=== PATIENT | male | born 2000 | race Caucasian/White ===

== ENCOUNTER 2018-07-31 21:27 | Emergency (ER) | payer MEDICAID, OTHER, SELFPAY ==
[~2018-07-31] VITALS: Ht 175.3 cm; Wt 72.7 kg
[2018-07-31] MEDS ORDERED: NS 1,000 ML IV ONE ×2 (22:15→23:45)
[2018-07-31] MEDS ORDERED: DICYCLOMINE 10 MG CAP PO ONE (22:30)
[2018-07-31] MEDS ORDERED: METOCLOPRAMIDE INJ 10MG/2ML VIAL (J2765) IV ONE (22:30)
[2018-07-31] MEDS: GASTROGRAFIN SOLUTION 30ML PO SCH ×2 (22:45→23:15)
[2018-07-31 22:58] LABS: BASO % 0.1 % (0.0-1.0); EOS # 0.1 10^3/uL (0.0-0.50); EOS % 0.8 % (0.0-3.0); HEMOGLOBIN 15.5 g/dl (13.5-17.5); LYMPH # 1.3 10^3/uL (1.5-6.5); LYMPH % 8.1 % (24.0-44.0); MEAN CORPUSCULAR HEMOGLOBIN 30.4 pg (27.0-33.0); MEAN CORPUSCULAR HGB CONC 33.7 g/dl (32.0-36.5); MEAN CORPUSCULAR VOLUME 90.2 fl (80.0-96.0); MONO # 0.6 10^3/uL (0.0-0.8); MONO % 4.1 % (0.0-5.0); NEUTROPHILS # 13.6 10^3/uL (1.8-7.7); NEUTROPHILS % 86.6 % (36.0-66.0); PLATELET COUNT, AUTOMATED 243 10^3/uL (150-450); WHITE BLOOD COUNT 15.7 10^3/uL (4.0-10.0)
[2018-07-31 23:25] LABS: ALBUMIN 4.5 GM/DL (3.2-5.2); ALT/SGPT 22 U/L (12-78); BILIRUBIN,DIRECT 0.1 MG/DL (0.0-0.2); BILIRUBIN,TOTAL 0.5 MG/DL (0.2-1.0); BLOOD UREA NITROGEN 9 MG/DL (7-18); CALCIUM LEVEL 9.2 MG/DL (8.5-10.1); CARBON DIOXIDE LEVEL 27 MEQ/L (21-32); CHLORIDE LEVEL 107 MEQ/L (98-107); CREATININE FOR GFR 0.73 MG/DL (0.70-1.30); GLUCOSE, FASTING 98 MG/DL (70-100); LIPASE 96 U/L (73-393); POTASSIUM SERUM 4.3 MEQ/L (3.5-5.1); SODIUM LEVEL 140 MEQ/L (136-145); TOTAL PROTEIN 7.8 GM/DL (6.4-8.2)
[2018-08-01] MEDS ORDERED: ISOVUE-370 76% 125ML VIAL (Q9967 PER ML) As Ordered ONE (00:13)
--- NOTE | 2018-08-01 01:13 | REPVR ---
EXAM: CT Abdomen and Pelvis With Contrast EXAM DATE/TIME: 08/01/2018 12:22 AM CLINICAL HISTORY: 17 years old, male; Pain; Abdominal pain TECHNIQUE: Axial computed tomography images of the abdomen and pelvis with intravenous contrast. All CT scans at this facility use at least one of these dose optimization techniques: automated exposure control; mA and/or kV adjustment per patient size (includes targeted exams where dose is matched to clinical indication); or iterative reconstruction. Coronal and sagittal reformatted images were created and reviewed. CONTRAST: Contrast Material: 100 ml of ISO 370; Contrast Route: iv COMPARISON: CR Abdomen,Flat Upright,PA CHEST 07/31/2018 10:22 PM FINDINGS: Lower thorax: Unremarkable. ABDOMEN: Liver: Unremarkable. Gallbladder and bile ducts: No radiodense gallstones. No biliary ductal dilatation. Pancreas: Unremarkable. Spleen: Unremarkable. Adrenals: Unremarkable. Kidneys and ureters: No mass. No radiodense calculi. No hydronephrosis. Stomach and bowel: No bowel wall thickening. No obstruction. No pneumatosis. Appendix: Normal. PELVIS: Bladder: Unremarkable. Reproductive: Unremarkable. ABDOMEN and PELVIS: Intraperitoneal space: No free fluid. No organized fluid collection. No free air. Bones/joints: No acute osseous abnormality. Soft tissues: Tiny, fat-containing umbilical hernia. Vasculature: Unremarkable. No aneurysm. Lymph nodes: Small mesenteric lymph nodes, nonspecific in appearance. No pathologically enlarged lymph nodes. IMPRESSION: 1. No CT evidence of acute intra-abdominal or pelvic pathology. 2. Additional findings, as above. Electronically signed by: Varinder Sosa On 08/01/2018 01:13:05 AM
[2018-08-01 01:36] VITALS: BP 109/60
[2018-08-01] MEDS ORDERED: DICY10CA13 PO (01:37)
[2018-08-01] MEDS ORDERED: REGL10TA6 PO (01:37)
--- NOTE | 2018-08-01 03:54 | REP ---
Clinical: Acute abdominal pain. Technique: Upright view of the chest with supine and upright views of the abdomen and pelvis. Findings: Frontal upright view of the chest demonstrates no acute cardiopulmonary process or free air below the diaphragm to suspect pneumoperitoneum. Supine and upright views of the abdomen and pelvis demonstrate nonspecific bowel gas pattern without obstruction or perforation. No organomegaly. No abnormal calcifications. Skeletal structures normal for age. Impression: Nonspecific bowel gas pattern. Electronically Signed by Jus Rai MD 08/01/2018 03:45 A
== END 2018-08-01 01:47 | disposition home or self-care (01) ==
LOC: M ED 21:27
DX: K52.9 Noninfective gastroenteritis and colitis, unspecified (principal)
CPT/HCPCS: 36415; 74021; 74177; 80048; 80076; 81001; 83605; 83690; 85025; 87040; 93041; 96361; 96374; 99285; J2765; Q9963; Q9967

== ENCOUNTER → 2018-11-23 | Outpatient (CLI) | payer MEDICAID, OTHER ==
[~2018-11-23] MED LIST: DICY10CA13 PO; E-Z-GAS II EFFERVESCENT PACKET (SODIUM BICARB./CITRIC ACID/SIMETHICONE) As Ordered ONE; E-Z-HD 98% w/w 340GM SUSP BTL As Ordered ONE; E-Z-PAQUE 96% w/w SUSP 176GM BTL As Ordered ONE; REGL10TA6 PO
--- NOTE | 2018-11-23 20:39 | REP ---
Upper GI Air Contrast with SBFT The procedure was performed by THIAGO Kwong, under the the direct supervision of Dr. De La Rosa. The images were reviewed with Dr. De La Rosa. The play back operator film shows no organomegaly or pathological masses. The intestinal gas pattern appears normal. Liquid barium and gas producing crystals were given in the erect position as well as liquid barium in the prone position in order to perform a double contrast upper GI examination. The oral and pharyngeal stages of deglutition were unremarkable. Esophageal transport is efficient and there is no esophagitis, stricture, or mucosal ring noted. There is no hiatal hernia. Gastroesophageal reflux as visualized to the thoracic inlet. The stomach calderón are normally outlined. The rugal folds are smooth and regular. There is no gastritis, neoplasm, or ulcer disease noted. The duodenal calderón are normally outlined. The mucosal folds are smooth and regular. There is no duodenitis, peptic ulcer disease, or neoplasm noted. The visualized portion of the proximal small bowel appears normal in course and caliber. The barium column was followed through the small bowel to the level of the terminal ileum. Small bowel transit time was approximately 40 minutes. During fluoroscopy gentle palpation shows all loops are freely mobile and pliable. There are no fixed or angulated loops. The small bowel mucosal pattern is normal in course and caliber. There is no transition to set suggest a partial small-bowel obstruction. The appendix is not visualized. The terminal ileum is not visualized, due to small bowel crowding and anatomical position. Impression: 1. Gastroesophageal reflux is noted to the level of the thoracic inlet. 2. Terminal ileum not visualized due to small bowel crowding and anatomical position. 1.9 minutes of fluoroscopy time was utilized for this procedure. Some fluoroscopic images are performed with last image hold technology. These images require no additional radiation. Reviewed by THIAGO Gomez 11/23/2018 05:21 P Electronically Signed by Angel Luis De La Rosa MD 11/23/2018 08:29 P
== END ==
LOC: M RAD 09:35
PROVIDERS: ATTEND Physician Assistant Medical
DX: K21.9 Gastro-esophageal reflux disease without esophagitis (principal); R11.2 Nausea with vomiting, unspecified; R19.7 Diarrhea, unspecified

== ENCOUNTER 2018-12-02 11:44 | Day surgery (SDC) | payer OTHER ==
[~2018-12-02] VITALS: Ht 175.3 cm; Wt 73.0 kg
[~2018-12-02 11:44] MED LIST changes: -E-Z-GAS II EFFERVESCENT PACKET (SODIUM BICARB./CITRIC ACID/SIMETHICONE) As Ordered ONE; -E-Z-HD 98% w/w 340GM SUSP BTL As Ordered ONE; -E-Z-PAQUE 96% w/w SUSP 176GM BTL As Ordered ONE; +NS 1,000 ML IV ONE
[2018-12-02] MEDS ORDERED: LIDOCAINE 2% INJ 100 MG/5 ML SDV (FOR ANES.) As Ordered ONE (12:41)
[2018-12-02] MEDS ORDERED: PROPOFOL 200 MG/20 ML VIAL As Ordered ONE ×3 (12:41→12:49)
--- NOTE | 2018-12-02 12:53 | ROOR ---
Patient Name: Chase King Procedure Date: 12/02/2018 12:30 PM Date of : 2000 Age: 18 Room: [facility] Gender: Male Note Status: Finalized Procedure: Upper GI endoscopy Indications: Generalized abdominal pain, Nausea with vomiting Providers: Barrington DUMONT MD Referring MD: Theresa URIBE DO Requesting Provider: Medicines: Monitored Anesthesia Care Complications: No immediate complications. Procedure: Pre-Anesthesia Assessment: - The heart rate, respiratory rate, oxygen saturations, blood pressure, adequacy of pulmonary ventilation, and response to care were monitored throughout the procedure. The Endoscope was introduced through the mouth, and advanced to the third part of duodenum. The upper GI endoscopy was accomplished without difficulty. The patient tolerated the procedure well. Findings: The esophagus was normal. The stomach was normal. The examined duodenum was normal. Impression: - Normal esophagus. - Normal stomach. - Normal examined duodenum. - No specimens collected. Recommendation: - You likely have Cannabinoid Hyperemesis Syndrome. The only treatment is to stop/reduce cannabis consumption. Barrington Dumont MD Barrington DUMONT MD 12/02/2018 12:52:39 PM Electronically signed by Barrington DUMONT MD Number of Addenda: 0 Note Initiated On: 12/02/2018 12:30 PM Estimated Blood Loss: Estimated blood loss: none.
--- NOTE | 2018-12-02 12:57 | ROOR ---
Patient Name: Chase King Procedure Date: 12/02/2018 12:31 PM Date of : 2000 Age: 18 Room: [facility] Gender: Male Note Status: Finalized Procedure: Colonoscopy Indications: Generalized abdominal pain, Change in bowel habits, Weight loss, nausea, vomiting Providers: Barrington DUMONT MD Referring MD: Theresa URIBE DO Requesting Provider: Medicines: Monitored Anesthesia Care Complications: No immediate complications. Procedure: Pre-Anesthesia Assessment: - The heart rate, respiratory rate, oxygen saturations, blood pressure, adequacy of pulmonary ventilation, and response to care were monitored throughout the procedure. The Colonoscope was introduced through the anus and advanced to 15 cm into the ileum. The colonoscopy was performed without difficulty. The patient tolerated the procedure well. The quality of the bowel preparation was good. Findings: The perianal and digital rectal examinations were normal. The colon (entire examined portion) appeared normal. The terminal ileum appeared normal. Small Internal Hemorrhoids. Impression: - The entire colon is normal. - The terminal ileum for 15 cm was normal. - Small Internal Hemorrhoids. - No specimens collected. Recommendation: - You likely have Cannabinoid Hyperemesis Syndrome. The only treatment is to stop/reduce cannabis consumption. - Return to referring physician as previously scheduled. - Return to my office PRN. Barrington Dumont MD Barrington DUMONT MD 12/02/2018 12:56:49 PM Electronically signed by Barrington DUMONT MD Number of Addenda: 0 Note Initiated On: 12/02/2018 12:31 PM Estimated Blood Loss: Estimated blood loss: none.
[2018-12-02 13:30] VITALS: BP 119/66
== END 2018-12-02 13:33 | disposition home or self-care (01) ==
LOC: M OPP 11:44
PROVIDERS: ATTEND Internal Medicine Gastroenterology
DX: K64.8 Other hemorrhoids (principal); R10.84 Generalized abdominal pain; R11.2 Nausea with vomiting, unspecified; R63.4 Abnormal weight loss

== ENCOUNTER 2020-06-20 10:34 | Emergency (ER) | payer MEDICAID, OTHER ==
[~2020-06-20] VITALS: Ht 175.3 cm; Wt 75.8 kg
[~2020-06-20 10:34] MED LIST changes: -NS 1,000 ML IV ONE
[2020-06-20 12:07] LABS: BASO # 0.1 10^3/uL (0.0-0.2); BASO % 0.9 % (0.0-1.0); EOS # 0.1 10^3/uL (0.0-0.5); EOS % 1.1 % (0.0-3.0); HEMATOCRIT 52.5 % (42.0-52.0); HEMOGLOBIN 17.7 g/dl (13.5-17.5); LYMPH # 1.4 10^3/uL (1.5-5.0); LYMPH % 20.6 % (24.0-44.0); MEAN CORPUSCULAR HEMOGLOBIN 30.1 pg (27.0-33.0); MEAN CORPUSCULAR HGB CONC 33.7 g/dl (32.0-36.5); MEAN CORPUSCULAR VOLUME 89.3 fl (80.0-96.0); MONO # 0.5 10^3/uL (0.0-0.8); MONO % 6.4 % (0.0-5.0); NEUTROPHILS # 4.9 10^3/uL (1.5-8.5); NEUTROPHILS % 70.7 % (36.0-66.0); PLATELET COUNT, AUTOMATED 252 10^3/uL (150-450); RED BLOOD COUNT 5.88 10^6/uL (4.30-6.10)
[2020-06-20 12:10] VITALS: BP 120/72
[2020-06-20 12:36] LABS: BLOOD UREA NITROGEN 11 MG/DL (7-18); CALCIUM LEVEL 10.4 MG/DL (8.5-10.1); CARBON DIOXIDE LEVEL 28 MEQ/L (21-32); CHLORIDE LEVEL 104 MEQ/L (98-107); CREATININE FOR GFR 0.94 MG/DL (0.70-1.30); GLOMERULAR FILTRATION RATE > 60.0 (>60); GLUCOSE, FASTING 117 MG/DL (70-100); POTASSIUM SERUM 4.1 MEQ/L (3.5-5.1); SODIUM LEVEL 140 MEQ/L (136-145)
[2020-06-20 12:37] LABS: ERYTHROCYTE SEDIMENTATION RATE 4 mm/hr (0-15)
[2020-06-20 12:38] LABS: MONO REFLEX EBV COMP NEGATIVE (NEGATIVE)
[2020-06-21 16:11] LABS: EBV VIRAL CAPSID AG IgM <36.0 U/mL (0.0-35.9)
== END 2020-06-20 13:43 | disposition home or self-care (01) ==
LOC: M ED 10:34
DX: H92.03 Otalgia, bilateral (principal); H61.23 Impacted cerumen, bilateral; J35.1 Hypertrophy of tonsils; K76.0 Fatty (change of) liver, not elsewhere classified; F41.9 Anxiety disorder, unspecified; K58.9 Irritable bowel syndrome, unspecified; F12.10 Cannabis abuse, uncomplicated

== ENCOUNTER 2020-06-29 12:48 | Emergency (ER) | payer OTHER ==
[~2020-06-29] VITALS: Ht 175.3 cm; Wt 75.9 kg
--- OUTSIDE RECORDS SUMMARY | 2020-06-29 12:57 | CCD ---
Author Author [facility] Organization [facility] Address Unknown Phone Unavailable Support Name Relationship Address Phone UE Next Of Kin Unknown Unavailable AAFES Next Of Kin [address] [place] [address] STEFANY DIAZ Next Of Kin [address] [place] [address] STEFANY DIAZ ECON [address] [place] [address] DIAZCORWIN LAWTON ECON [address] [place] [address] Unavailable Re-disclosure Warning The records that you are about to access may contain information from federally-assisted alcohol or drug abuse programs. If such information is present, then the following federally mandated warning applies: This information has been disclosed to you from records protected by federal confidentiality rules (42 CFR part 2). The federal rules prohibit you from making any further disclosure of this information unless further disclosure is expressly permitted by the written consent of the person to whom it pertains or as otherwise permitted by 42 CFR part 2. A general authorization for the release of medical or other information is NOT sufficient for this purpose. The Federal rules restrict any use of the information to criminally investigate or prosecute any alcohol or drug abuse patient.The records that you are about to access may contain highly sensitive health information, the redisclosure of which is protected by Article 27-F of the [facility] Public Health law. If you continue you may have access to information: Regarding HIV / AIDS; Provided by facilities licensed or operated by the [facility] Office of Mental Health; or Provided by the [facility] Office for People With Developmental Disabilities. If such information is present, then the following [facility] mandated warning applies: This information has been disclosed to you from confidential records which are protected by state law. State law prohibits you from making any further disclosure of this information without the specific written consent of the person to whom it pertains, or as otherwise permitted by law. Any unauthorized further disclosure in violation of state law may result in a fine or usp sentence or both. A general authorization for the release of medical or other information is NOT sufficient authorization for further disc losure. Family History Family Member Name Family Member Gender Family Member Status Date o f Status Description Data Source(s) Unknown Unknown Problem MEDENT ([facility], ) Encounters Encounter Providers Location Date Indications Data Source(s ) Outpatient 07/11/2019 01:19:00 PM EST [facility] Outpatient 06/13/2019 03:38:00 PM [facility] Insurance Providers Payer name Policy type / Coverage type Policy ID Covered green party ID Covered green party's relationship to bauer Policy Bauer Plan Information [facility] [id number] SP [id number] EMEDNY [id number] SP [id number] MEDICAID M [id number] S [id number] [facility] [facility] O [id number] S [id number] [facility] Medicaid [id number] Self [id number] [facility] Health Maintenance Organization (O) [id number] Family Dependent [id number] MEDICAID [id number] SP [id number] [facility] [id number] SELF PAY ONLY [id number] SP [id number] [facility] Health Maintenance Organization (O) [id number] Family Dependent [id number]
[2020-06-29 13:22] LABS: BASO # 0.1 10^3/uL (0.0-0.2); EOS # 0.2 10^3/uL (0.0-0.5); EOS % 1.7 % (0.0-3.0); HEMATOCRIT 50.7 % (42.0-52.0); HEMOGLOBIN 17.2 g/dl (13.5-17.5); LYMPH # 3.8 10^3/uL (1.5-5.0); LYMPH % 33.2 % (24.0-44.0); MEAN CORPUSCULAR HEMOGLOBIN 29.8 pg (27.0-33.0); MEAN CORPUSCULAR HGB CONC 33.9 g/dl (32.0-36.5); MEAN CORPUSCULAR VOLUME 87.7 fl (80.0-96.0); MONO # 0.6 10^3/uL (0.0-0.8); MONO % 5.5 % (2.0-8.0); NEUTROPHILS # 6.7 10^3/uL (1.5-8.5); NEUTROPHILS % 58.3 % (36.0-66.0); PLATELET COUNT, AUTOMATED 304 10^3/uL (150-450); RED BLOOD COUNT 5.78 10^6/uL (4.30-6.10); WHITE BLOOD COUNT 11.5 10^3/uL (4.0-10.0)
--- OUTSIDE RECORDS SUMMARY | 2020-06-29 13:38 | CCD ---
Author Author [facility] Organization [facility] Address Unknown Phone Unavailable Support Name Relationship Address Phone UE Next Of Kin Unknown Unavailable AAFES Next Of Kin [address] [facility] [place] [address] STEFANY DIAZ Next Of Kin [address] [place] [address] STEFANY DIAZ ECON [address] [place] [address] DIAZMARY LAWTONSIMBA ECON [address] [place] [facility] [place] [address] Unavailable Re-disclosure Warning The records that you [...] is protected by Article 27-F of the [facility] Public Health law. If you continue you may have access to information: Regarding HIV / AIDS; Provided by facilities licensed or operated by the [facility] Office of Mental Health; or Provided by the [facility] Office for People With Developmental Disabilities. If such information is present, then the following [facility] mandated warning applies: This information has [...] law may result in a fine or senior care sentence or both. A general authorization for the release of medical or other information is NOT sufficient authorization for further disc losure. Family History Family Member Name Family Member Gender Family Member Status Date o f Status Description Data Source(s) Unknown Unknown Problem MEDENT ([facility], ) Encounters Encounter Providers Location Date Indications Data Source(s ) Outpatient 07/11/2019 01:19:00 PM EST [facility] Imaging Outpatient 06/13/2019 03:38:00 PM [facility] Insurance Providers Payer name Policy type / Coverage type Policy ID Covered libertarian ID Covered libertarian's relationship to bauer Policy Bauer Plan Information [facility] [id number] SP [id number] EMEDNY [id number] SP [id number] MEDICAID M [id number] S [id number] [employer] [facility] O [id number] S [id number] [facility] Medicaid [id number] Self [id number] [facility] Health Maintenance Organization (O) [id number] Family Dependent [id number] MEDICAID [id number] SP [id number] [facility] [id number] [id number] SELF PAY ONLY [id number] SP [id number] [facility] Health Maintenance Organization (O) [id number] Family Dependent [id number]
[2020-06-29 13:51] LABS: BLOOD UREA NITROGEN 14 MG/DL (7-18); CALCIUM LEVEL 9.5 MG/DL (8.5-10.1); CARBON DIOXIDE LEVEL 25 MEQ/L (21-32); CHLORIDE LEVEL 103 MEQ/L (98-107); CK-MB VALUE MASS < 1.0 NG/ML (<3.6); CPK CREATINE PHOSPHOKINASE 80 U/L (39-308); CREATININE FOR GFR 1.12 MG/DL (0.70-1.30); GLOMERULAR FILTRATION RATE > 60.0 (>60); GLUCOSE, FASTING 142 MG/DL (70-100); MAGNESIUM LEVEL 2.1 MG/DL (1.8-2.4); MB/CK RELATIVE INDEX 1.25 (< OR =4); POTASSIUM SERUM 3.7 MEQ/L (3.5-5.1); SODIUM LEVEL 139 MEQ/L (136-145); THYROID STIMULATING HORMONE 0.912 uIU/ML (0.358-3.740); TROPONIN I < 0.02 NG/ML (< 0.10)
[2020-06-29] MEDS ORDERED: NS 1,000 ML IV ONE (14:00)
[2020-06-29 16:11] VITALS: BP 111/61
--- NOTE | 2020-06-30 20:39 | ECGEPIP ---
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
== END 2020-06-29 16:19 | disposition home or self-care (01) ==
LOC: M ED 12:48
DX: R55 Syncope and collapse (principal); K58.9 Irritable bowel syndrome, unspecified

== ENCOUNTER 2022-11-26 13:18 | Emergency (ER) | payer OTHER ==
[~2022-11-26] VITALS: Ht 172.7 cm; Wt 86.4 kg
[~2022-11-26 13:18] MED LIST changes: +DICY-61 PO; -DICY10CA13 PO
[2022-11-26] MEDS ORDERED: HOLTER MONITOR XX (14:19)
[2022-11-26 14:43] VITALS: BP 107/55; TEMP 97.4; O2SAT 97
== END 2022-11-26 14:44 | disposition home or self-care (01) ==
LOC: M ED 13:18
DX: R55 Syncope and collapse (principal); K58.9 Irritable bowel syndrome, unspecified; F10.10 Alcohol abuse, uncomplicated; Z79.899 Other long term (current) drug therapy